=== PATIENT | male | born 1995 | race Caucasian/White ===

== ENCOUNTER 2024-09-24 06:03 | Observation (INO) ==
[2024-09-24] MEDS: 0.9 % SODIUM CHLORIDE 1,000 ML IV ONE (06:39)
[2024-09-24] MEDS: ONDANSETRON 4 MG/2 ML VIAL IV ONE (06:40)
[2024-09-24] MEDS: KETOROLAC 15 MG/ML VIAL IV ONE (06:40)
[2024-09-24 07:03] LABS: Basophils # (Auto) 0.02 K/mcL (0.00-0.30); Basophils % (Auto) 0.2 % (0.0-2.0); Eosinophils # (Auto) 0.04 K/mcL (0.00-0.70); Eosinophils % (Auto) 0.4 % (0.0-7.0); Hematocrit 46.0 % (40.1-51.0); Hemoglobin 15.7 g/dL (13.7-17.5); Lymphocytes # (Auto) 2.33 K/mcL (1.50-4.80); Lymphocytes % (Auto) 23.6 % (15.5-49.0); Mean Corpuscular HGB Conc 34.1 g/dL (31.0-36.0); Monocytes # (Auto) 0.77 K/mcL (0.10-0.90); Monocytes % (Auto) 7.8 % (1.0-12.0); Neutrophils % (Auto) 67.8 % (38.0-78.0); Platelet Count 345 K/mcL (140-440); RBC 5.61 M/mcL (4.63-6.08); WBC 9.9 K/mcL (4.5-11.0)
[2024-09-24 07:12] LABS: ALT/SGPT 222 U/L (<40); AST/SGOT 224 U/L (<40); Albumin 4.7 gm/dL (3.2-5.2); Albumin/Globulin Ratio 1.9 (1.0-2.3); Alkaline Phosphatase 59 U/L (39-117); Anion Gap 15.0 (8.0-16.0); Bilirubin,Total 0.6 mg/dL (0.1-1.0); Blood Urea Nitrogen 15 mg/dL (6-20); Calcium 9.3 mg/dL (8.6-10.4); Carbon Dioxide 22 mmol/L (22-30); Chloride 102 mmol/L (96-108); Globulin 2.5 gm/dL (2.2-3.7); Glucose 96 mg/dL (70-105); Potassium 3.9 mmol/L (3.3-5.1); Sodium 139 mmol/L (133-145)
[2024-09-24] MEDS: ACETAMINOPHEN 1,000 MG/100 ML BAG IV ONE (08:00)
[2024-09-24 08:14] LABS: Bilirubin,Urine Negative (Negative); Color,Urine YELLOW; Glucose,Urine (UA) Negative (Negative); Ketones,Urine Negative (Negative); Leukocyte Esterase,Urine Negative /uL (Negative); PH,Urine 7.0 (5.0-9.0); Protein,Urine Negative (Negative); Specific Gravity,Urine 1.020 (1.000-1.035); Urobilinogen,Urine 4.0 mg/dL
[2024-09-24] MEDS ORDERED: ONDANSETRON 4 MG/2 ML VIAL IV PRN (09:52)
[2024-09-24] MEDS: 0.9 % SODIUM CHLORIDE 1,000 ML IV SCH (11:18)
[2024-09-24] MEDS: PIPERACILLIN SODIUM/TAZOBACTAM 4.5 GM in DEXTROSE 5% IN WATER 100 ML IV SCH ×2 (12:27→12:30)
[2024-09-25] MEDS: SCOPOLAMINE 1 PATCH PATCH TOPICAL ONE (07:22)
[2024-09-25] MEDS: PNEUMOCOCCAL 23-VAL P-SAC VAC 0.5 ML SYRINGE IM ONE (09:58)
[2024-09-25] MEDS ORDERED: MAGNESIUM SULFATE 2 GM/50 ML BAG IV ONE (11:37)
[2024-09-25] MEDS ORDERED: ROCURONIUM 10 MG/ML ML IV ONE (11:40)
[2024-09-25] MEDS ORDERED: LIDOCAINE 2% PF 5 ML VIAL ONE (11:40)
[2024-09-25] MEDS ORDERED: DEXAMETHASONE 10 MG/ML VIAL ONE (11:40)
[2024-09-25] MEDS ORDERED: ONDANSETRON 4 MG/2 ML VIAL ONE (11:40)
[2024-09-25] MEDS ORDERED: SUGAMMADEX SODIUM 200 MG/2 ML VIAL IV ONE ×2 (11:40→11:57)
[2024-09-25] MEDS ORDERED: GLYCOPYRROLATE 0.2 MG/ML VIAL IV ONE (11:40)
[2024-09-25] MEDS ORDERED: PROPOFOL 200 MG/20 ML VIAL IV ONE (11:42)
[2024-09-25] MEDS ORDERED: fentaNYL 100 MCG/2 ML VIAL ONE (11:42)
[2024-09-25] MEDS ORDERED: FAMOTIDINE/PF 20 MG/2 ML VIAL IV ONE (11:57)
[2024-09-25] MEDS ORDERED: ONDANSETRON 4 MG/2 ML VIAL IV PRN (13:42)
[2024-09-25] MEDS ORDERED: HYDROmorphone 0.5 MG/0.5 ML SYRINGE IV PRN (13:42)
[2024-09-25] MEDS ORDERED: IPRATROPIUM/ALBUTEROL 3 ML AMPUL.NEB NEB PRN (13:42)
[2024-09-25] MEDS ORDERED: METOCLOPRAMIDE 10 MG/2 ML VIAL IV PRN (13:42)
[2024-09-25] MEDS: ACETAMINOPHEN 1,000 MG/100 ML BAG IV ONE (14:25)
[2024-09-25] MEDS: KETOROLAC 30 MG/ML VIAL IV PRN (14:29)
[2024-09-26 07:05] LABS: Basophils # (Auto) 0 K/mcL (0.00-0.30); Basophils % (Auto) 0 % (0.0-2.0); Eosinophils # (Auto) 0 K/mcL (0.00-0.70); Eosinophils % (Auto) 0 % (0.0-7.0); Hematocrit 43.1 % (40.1-51.0); Hemoglobin 14.8 g/dL (13.7-17.5); Lymphocytes # (Auto) 1.41 K/mcL (1.50-4.80); Lymphocytes % (Auto) 14.1 % (15.5-49.0); Mean Corpuscular HGB Conc 34.3 g/dL (31.0-36.0); Monocytes # (Auto) 0.47 K/mcL (0.10-0.90); Monocytes % (Auto) 4.7 % (1.0-12.0); Neutrophils % (Auto) 80.8 % (38.0-78.0); Platelet Count 346 K/mcL (140-440); RBC 5.25 M/mcL (4.63-6.08); WBC 10.0 K/mcL (4.5-11.0)
[2024-09-26 14:07] VITALS: TEMP 97.8; O2SAT 99
== END 2024-09-26 14:17 | disposition home or self-care (01) ==
LOC: ED 06:03 → MEDSUR 06:03
PROVIDERS: ADMIT Family Medicine Adult Medicine; ATTEND Family Medicine Adult Medicine